=== PATIENT | female | born 1980 | race Caucasian/White ===

== ENCOUNTER 2016-10-22 02:13 | Emergency (ER) | payer MEDICAID ==
[~2016-10-22] VITALS: Ht 160 cm; Wt 70.0 kg
[2016-10-22 08:35] VITALS: BP 115/77
== END 2016-10-22 09:34 | disposition home or self-care (01) ==
LOC: ED 04:03
DX: F10.229 Alcohol dependence with intoxication, unspecified (principal); F20.9 Schizophrenia, unspecified; Z90.49 Acquired absence of other specified parts of digestive tract
CPT/HCPCS: 70450; 82962; 99284

== ENCOUNTER 2016-10-24 15:07 | Emergency (ER) | payer MEDICAID ==
[~2016-10-24] VITALS: Ht 165.1 cm; Wt 67.6 kg
[2016-10-24] MEDS ORDERED: SODIUM CHLORIDE 0.9% 1,000ML IVBOLUS ONE (15:30)
[2016-10-24 21:21] VITALS: BP 106/65
== END 2016-10-24 21:26 | disposition home or self-care (01) ==
LOC: ED 17:07
DX: L55.0 Sunburn of first degree (principal); F19.129 Other psychoactive substance abuse with intoxication, unspecified; E11.9 Type 2 diabetes mellitus without complications; Z90.49 Acquired absence of other specified parts of digestive tract
CPT/HCPCS: 36415; 80047; 84703; 96360; 99284; J7030

== ENCOUNTER 2018-08-18 19:05 | Emergency (ER) | payer MEDICAID, OTHER ==
[~2018-08-18] VITALS: Ht 152.4 cm; Wt 50.0 kg
--- NOTE | 2018-08-18 19:31 | NUR ---
BROUGHT IN BY DEPUTIES FROM [facility] ON LEGAL 1999. PT UNCOOPERATIVE AND NOT WANTING TO TAKE CLOTHES OFF. WITH SECURITY IN ROOM AND ASSISTANCE OF NITHYA PALMER PT'S CLOTHING REMOVED AND PLACED IN GOWN. ADDITIONALLY SECURITY AT SIDE WHILE LAB DRAWING BLOOD. AT THIS POINT PT COOPERATED. THEN EKG DONE BY ESTELA AND PT PERMITED THIS WITHOUT SECURITY AT HAND. PT UNABLE TO ANSWER QUESTIONS, TALKS TO SELF AND YELLS OUT PERIODICALLY, DISHEVELED. SITTER OUTSIDE ROOM.
[2018-08-18 19:32] LABS: BASOPHILS # (AUTO) 0.06 x10^3/uL (0-0.1); BASOPHILS % (AUTO) 1 % (0-1); EOSINOPHILS # (AUTO) 0.35 x10^3/uL (0-0.4); EOSINOPHILS % (AUTO) 4 % (1-7); LYMPHOCYTES # (AUTO) 2.93 x10^3/uL (1-3.4); LYMPHOCYTES % (AUTO) 36 % (22-44); MD NO; MEAN CORPUSCULAR HEMOGLOBIN 30.9 pg (27.0-34.8); MEAN CORPUSCULAR HGB CONC 34.3 g/dL (32.4-35.8); MEAN CORPUSCULAR VOLUME 90.2 fL (80-100); MEAN PLATELET VOLUME 7.8 fL (7.4-10.4); MONOCYTES # (AUTO) 0.78 x10^3/uL (0.2-0.8); MONOCYTES % (AUTO) 10 % (2-9); NEUTROPHILS # (AUTO) 4.11 x10^3/uL (1.8-6.8); NEUTROPHILS % (AUTO) 50 % (42-75); PLATELET COUNT 377 x10^3/uL (130-400); RED BLOOD COUNT 3.27 x10^6/uL (3.82-5.3); RED CELL DISTRIBUTION WIDTH 13.4 % (9.6-15.2)
[2018-08-18 19:45] LABS: ALANINE AMINOTRANSFERASE 23 U/L (12-78); ALBUMIN 3.2 g/dL (3.4-5.0); ANION GAP 5 mmol/L (5-15); CALCIUM 8.2 mg/dL (8.5-10.1); CHLORIDE 111 mmol/L (98-107); CREATININE 0.59 mg/dL (0.55-1.02)
[2018-08-18 19:50] LABS: ALKALINE PHOSPHATASE 68 U/L (45-117); BILIRUBIN,TOTAL 0.1 mg/dL (0.2-1.0); TOTAL PROTEIN 7.1 g/dL (6.4-8.2)
[2018-08-18 19:58] LABS: ACETAMINOPHEN < 2 mcg/mL (10-30); SALICYLATE LEVEL < 1.7 mg/dL (2.8-20.0)
--- NOTE | 2018-08-18 20:51 | NUR ---
TOLD PT WE NEEDED TO GET A URINE SAMPLE AND THAT WE WERE GOING TO THE BATHROOM WITH HER. PT WALKED TO BATHROOM WITHOUT ASSISTANCE AND GAVE SAMPLE IN HAT. BACK TO ROOM. PERIODICALLY STANDS AT DOOR AND THEN BACK TO [facility] IN ROOM. SITTER REMAINS OUTSIDE.
--- NOTE | 2018-08-18 21:06 | NUR ---
REPORT TO HAWK HAWKINS
--- NOTE | 2018-08-18 21:19 | NUR ---
REPORT FROM SHRUTHI DUGAN. PT SITTING UP IN [facility] CARLA NOTED. PT TALKING TO HERSELF. ROOM SECURE. NO PERSONAL BELONGINGS NOTED IN ROOM. SITTER PRESENT. DOA SENT BY RITCHIE. TP AWARE. AWAITING TELEPSYCH CONSULT.
[2018-08-18 21:23] LABS: AMPHETAMINE SCREEN, URINE Negative (Negative); BARBITURATE SCREEN, URINE Negative (Negative); BENZODIAZEPINE SCREEN, URINE Negative (Negative); CANNABINOID SCREEN, URINE Negative (Negative); COCAINE SCREEN, URINE Negative (Negative); METHADONE SCREEN, URINE Negative (Negative); OPIATE SCREEN, URINE Negative (Negative)
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
--- NOTE | 2018-08-19 00:40 | NUR ---
PT PROVIDED SANDWICH, CHIPS, JUICE COMPLIANT WITH SI PROTOCOL. ROOM REMAINS SECURE. SITTER PRESENT.
--- NOTE | 2018-08-19 01:13 | NUR ---
TELEPSYCH INITIATED AT 2104
--- NOTE | 2018-08-19 01:30 | NUR ---
PT SITTING UP IN [place] NOTED. ROOM SECURE. SITTER PRESENT
--- NOTE | 2018-08-19 02:00 | NUR ---
PT YELLING INTERMITTENTLY, "STOP" "GO AWAY". PT SITTING UP IN [place]. HOLDING VS UNTIL PT CALMS
--- NOTE | 2018-08-19 02:09 | NUR ---
REPORT TO SOC . MONITOR IN ROOM.
--- NOTE | 2018-08-19 02:19 | NUR ---
PT MINIMALLY COOPERATIVE WITH SOC INTERVIEW. SOC TO SPEAK WITH ERP
--- NOTE | 2018-08-19 02:41 | NUR ---
REPORT TO SHRUTHI GARCIA
--- NOTE | 2018-08-19 02:45 | NUR ---
PT SITTING ON EDGE OF BED WITH LEGS CURLED UP TALKING TO HERSELF. WILL CONTINUE TO MONITOR. SITTER AT DOOR.
[2018-08-19] MEDS ORDERED: ZIPRASIDONE 20 MG INJ IM ONE ×6 (03:05→16:30)
--- NOTE | 2018-08-19 03:15 | NUR ---
PT BECOMING AGITATED, REPEATEDLY ASKING FOR COFFEE. PT ASKED TO STAY IN HER ROOM. PT REFUSED DUE TO WANTING COFFEE. PT ALSO REQUESTING HER BELONGINGS. PT WALKING OUT INTO GO, REFUSING TO GO BACK INTO HER ROOM. SECURITY CALLED. PT MEDICATED FOR ACUTE AGITATION. SITTER REMAINS AT DOOR.
--- NOTE | 2018-08-19 04:41 | NUR ---
PT REQUESTING FOOD. PT GIVEN CRACKERS. PT PLEASED WITH THIS OFFERING. PT HAS CURLED UP IN BED WITH COVERS OVER HER. RESP EVEN AND NON LABORED. SITTER AT DOOR.
--- NOTE | 2018-08-19 05:21 | NUR ---
PT CONTINUES TO REST CALMLY IN BED. SITTER AT DOOR. WILL CONTINUE TO MONITOR.
--- NOTE | 2018-08-19 06:09 | NUR ---
PT REMAINS RESTING CALMLY IN BED. NO STATED NEEDS. RESP EVEN AND NON LABORED. SITTER AT DOOR.
--- NOTE | 2018-08-19 07:12 | NUR ---
CHECKED ON PATIENT. SITTER AT DOOR. SHE IS SLEEPING SOUNDLY AND WAKES UP BUT NOT COOPERATIVE AND AND NOT ANSWERING QUESTIONS. PATIENT VSS. ORDERED BREAKFAST. WILL NOT ANSWER MY QUESTIONS FOR ASSESMENTS.
[2018-08-19] MEDS ORDERED: LORazepam 1MG TABLET PO ONE (07:30)
[2018-08-19] MEDS ORDERED: LORazepam 1MG TABLET ONE (07:31)
--- NOTE | 2018-08-19 07:38 | NUR ---
SEAMUS WOKE UP AND IS ADAMENT ABOUT GOING HOME, AND LEAVING. SHE IS UNCOOPERATIVE, PACING, AND ESCALATING HER ANGER. GAVE PATIENT ATIVAN TO HELP AND WILL REASSESS.
--- NOTE | 2018-08-19 08:02 | NUR ---
GOT PATIENT BREAKFAST, ATE ALL OF IT. PATIENT RESTLESS, AND PACING.
--- NOTE | 2018-08-19 08:37 | NUR ---
THROUGH PUT RN: PT PLACED ON A LEGAL HOLD, MEDICALLY CLEARED. FAXED MEDICALS, FACE SHEET AND LEGAL HOLD TO [facility]. RECEIVED FAX CONFIRMATION.
--- NOTE | 2018-08-19 09:27 | NUR ---
PATIENT SLEEPING AT THIS TIME. ORDERED LUNCH.
--- NOTE | 2018-08-19 10:26 | NUR ---
PATIENT RESTING QUIETLY AT THIS TIME
--- NOTE | 2018-08-19 10:30 | NUR ---
LUNCH TRAY GIVEN. PATIENT IS CALM AND RESTING AT THIS TIME.
--- NOTE | 2018-08-19 11:42 | NUR ---
PATIENT RESTING QUIETLY AT THIS TIME.
--- NOTE | 2018-08-19 12:39 | NUR ---
patient continues to rest quietly.
--- NOTE | 2018-08-19 14:53 | NUR ---
patient up to bathroom briefly, but then went back to bed. she is calm and cooperative.
--- NOTE | 2018-08-19 15:40 | NUR ---
just got word patient accepted at [facility] and will be going at 17:30. she is calm, ordered her a dinner tray.
--- NOTE | 2018-08-19 16:21 | NUR ---
patient woke up and got manic and angry. she is trying to leave, running out of room, and screaming that she needs her things. got order for and gave geodon. patient is here with security keeping her in room.
--- NOTE | 2018-08-19 17:02 | NUR ---
patient was manic and non cooperative about an hour then after geodon patient became calm and back resting. patient wakes easily but otherwise resting quietly. waiting for [facility].
[2018-08-19 17:20] VITALS: BP 105/78
--- NOTE | 2018-08-19 17:58 | NUR ---
patient woke up and is slamming doors, and upset. trying to calm patietn down.
--- NOTE | 2018-08-19 18:13 | NUR ---
[facility]ing [facility]
--- NOTE | 2018-08-19 18:17 | NUR ---
patient report given to cecelia. celia left for eusebios in custody of cecelia
== END 2018-08-19 18:36 ==
LOC: ED 19:34 → EDIP 08-19 02:26 → UNDOADMIN 08-19 02:26 → ED 08-19 18:36
DX: F23 Brief psychotic disorder (principal); E11.9 Type 2 diabetes mellitus without complications
CPT/HCPCS: 36415; 80053; 80307; 80329; 84703; 85025; 96372; 99285; J3486; G0480

== ENCOUNTER 2018-10-09 10:39 | Inpatient (IN) | payer OTHER ==
[~2018-10-09] VITALS: Ht 160 cm; Wt 59.0 kg
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
--- NOTE | 2018-10-09 11:07 | NUR ---
PT FOUND WANDERING IN HALLWAY MULTIPLE TIMES AND ESCORTED BACK TO ROOM SAFELY. PT PROVIDED WITH WARM BLANKET, DENIES NEED FOR RESTROOM
[2018-10-09] MEDS ORDERED: ZIPRASIDONE 20 MG INJ IM ONE ×2 (12:23→12:30)
--- NOTE | 2018-10-09 12:37 | NUR ---
PT UNCOOPERATIVE WITH NURSING CARES, REMOVING MONITORING EQUIMENT, PT PERSISTENTLY GETTING OUT OF BED AND WANDERING DOWN HALLWAY. PT NOT RESPONSIVE TO REASSURANCE, REDIRECTION, NOR ENVIRONMENTAL CHANGES. SITTER MONITORING FROM HALLWAY, MEDICATED PER MD ORDER, RESTRAINTS IN PLACE. SEE PAPER CHARTING
[2018-10-09 12:51] LABS: BASOPHILS # (AUTO) 0.06 x10^3/uL (0-0.1); BASOPHILS % (AUTO) 1 % (0-1); EOSINOPHILS % (AUTO) 0 % (1-7); LYMPHOCYTES # (AUTO) 1.47 x10^3/uL (1-3.4); LYMPHOCYTES % (AUTO) 12 % (22-44); MD NO; MEAN CORPUSCULAR HEMOGLOBIN 31.7 pg (27.0-34.8); MEAN CORPUSCULAR HGB CONC 33.3 g/dL (32.4-35.8); MEAN CORPUSCULAR VOLUME 95.1 fL (80-100); MEAN PLATELET VOLUME 8.5 fL (7.4-10.4); MONOCYTES # (AUTO) 0.77 x10^3/uL (0.2-0.8); MONOCYTES % (AUTO) 6 % (2-9); NEUTROPHILS # (AUTO) 10.45 x10^3/uL (1.8-6.8); NEUTROPHILS % (AUTO) 82 % (42-75); PLATELET COUNT 226 x10^3/uL (130-400); RED BLOOD COUNT 3.55 x10^6/uL (3.82-5.3); RED CELL DISTRIBUTION WIDTH 18.2 % (9.6-15.2)
[2018-10-09 13:01] LABS: ALBUMIN 3.3 g/dL (3.4-5.0); ANION GAP 9 mmol/L (5-15); CALCIUM 7.8 mg/dL (8.5-10.1); CHLORIDE 110 mmol/L (98-107)
[2018-10-09 13:14] LABS: ALANINE AMINOTRANSFERASE 45 U/L (12-78); ALKALINE PHOSPHATASE 52 U/L (45-117); BILIRUBIN,TOTAL 0.6 mg/dL (0.2-1.0); CREATININE 0.56 mg/dL (0.55-1.02); TOTAL PROTEIN 6.9 g/dL (6.4-8.2)
[2018-10-09 13:21] LABS: SALICYLATE LEVEL < 1.7 mg/dL (2.8-20.0)
[2018-10-09] MEDS ORDERED: POTASSIUM CHLORIDE 40 MEQ in D5%-0.9% NACL 1,000 ML IV SCH (14:00)
--- NOTE | 2018-10-09 14:29 | NUR ---
LUNCH BREAK NOTE: PT BEING OBSERVED BY SITTER. IV STARTED. PT RESTING IN NAD. VSS. WAITING FOR KCL DRIP FROM PHARMACY.
--- NOTE | 2018-10-09 15:52 | NUR ---
DR LIN TO BEDSIDE, ASSESSMENT AND POC DISCUSSION. AWAITING FURTHER ORDERS AT THIS TIME
[2018-10-09] MEDS ORDERED: LORazepam 2 MG/ML, 1ML IVPush ONE (16:00)
[2018-10-09] MEDS ORDERED: LORazepam 2 MG/ML, 1ML ONE (16:23)
[2018-10-09 18:14] LABS: ANION GAP 5 mmol/L (5-15); CALCIUM 7.6 mg/dL (8.5-10.1); CHLORIDE 113 mmol/L (98-107); CREATININE 0.49 mg/dL (0.55-1.02)
--- NOTE | 2018-10-09 19:07 | NUR ---
RECIEVED BEDSIDE REPORT FROM HAKAN HAWKINS.. PT RESTING IN BED WITH EYES CLOSED. RESP EVEN, PT ON VITALS MONITORS. SITTER AT DOOR FOR OBS.
[2018-10-09] MEDS ORDERED: BENZTROPINE 1 MG TABLET PO PRN (19:30)
[2018-10-09] MEDS ORDERED: BISACODYL 10 MG SUPP PR PRN (19:30)
[2018-10-09] MEDS ORDERED: POLYETHYLENE GLYCOL 17 GM PACKET PO PRN (19:30)
[2018-10-09] MEDS ORDERED: ONDANSETRON ODT 4 MG PO PRN (19:30)
[2018-10-09] MEDS ORDERED: ZIPRASIDONE 20MG CAPSULE PO PRN (19:30)
--- NOTE | 2018-10-09 20:31 | NUR ---
PT REMAINS RESTING IN BED WITH EYES CLOSED. SITTER AT DOOR FOR OBS. WILL CONTINUE TO MONITOR.
--- NOTE | 2018-10-09 21:11 | NUR ---
PT RESTING CALMLY IN BED WITH EYES CLOSED. NO STATED NEEDS AT THIS TIME. SITTER AT [facility] FOR FREQUENT OBS.
--- NOTE | 2018-10-09 22:10 | NUR ---
PT RESTING CALMLY IN BED WITH EYES CLOSED. NO STATED NEEDS AT THIS TIME. SITTER AT [facility] FOR FREQUENT OBS.
--- NOTE | 2018-10-09 23:47 | NUR ---
PT RESTING CALMLY IN BED WITH EYES CLOSED. NO STATED NEEDS AT THIS TIME. SITTER AT [facility] FOR FREQUENT OBS.
--- NOTE | 2018-10-10 00:40 | NUR ---
PT AWAKE AND WALKING AROUND HER ROOM. PT HAS REMOVED GOWN AND PUT ON HER STREET CLOTHES. PT HAS PULLED OUT IV INTACT AND REMOVED VITALS MONITORS. AMBULATED TO BATHROOM STEADILY WITH THIS RN AND PROVIDED URINE SAMPLE. PT WALKED BACK TO HER ROOM. PT SAT ON BED FOR A SHORT WHILE, THEN RAN OUT OF ROOM AND EXITED OUT OF RAD DOOR. PT FOUND IN GO BY RAD BY SECURITY AND BROUGHT BACK TO ROOM.
--- NOTE | 2018-10-10 01:05 | NUR ---
PT PUT BACK IN HOSPITAL GOWN. PT CLOTHING REMOVED FROM ROOM, TAGGED, BAGGED AND PLACED IN CLOTHING CLOSET. PT PLACED IN RESTRAINTS.
[2018-10-10 01:18] LABS: CULTURE INDICATED? NO; MICROSCOPIC AUTO
[2018-10-10 01:26] LABS: AMPHETAMINE SCREEN, URINE Negative (Negative); BARBITURATE SCREEN, URINE Negative (Negative); BENZODIAZEPINE SCREEN, URINE Negative (Negative); CANNABINOID SCREEN, URINE Negative (Negative); COCAINE SCREEN, URINE Negative (Negative); METHADONE SCREEN, URINE Negative (Negative); OPIATE SCREEN, URINE Negative (Negative)
--- NOTE | 2018-10-10 01:33 | NUR ---
BREAK RN: PT IN RESTRAINTS UPON RECEIVING REPORT S/T PT CONTINUOUSLY GETTING UP AND TRYING TO LEAVE. PT SHOUTING AT STAFF WHEN ATTEMPTING TO BE ESCORTED BACK TO . THIS HAPPENED MULTIPLE TIMES WITHIN APPROX 30 MINUTES. UNABLE TO DEESCULATE PT VERBALLY. PT RAMBLING ABOUT MOVING TO [place]. PT STATES [place] WHEN ASKED WHERE SHE IS AT. ATTEMPTED TO REOREINT PT. VSS. SITTER IN PLACE FOR OBS.
--- NOTE | 2018-10-10 01:41 | NUR ---
BREAK RN: PT GIVEN PO FLUIDS PER REQUEST. OFFERED BEDPAN--PT REFUSING AT THIS TIME.
--- NOTE | 2018-10-10 01:55 | NUR ---
CALLED [facility] FAXED REFERRAL TO [facility] PT IS SELF PAY
--- NOTE | 2018-10-10 02:01 | NUR ---
Called ED. Unable to admit to 3E due to self-pay status at this time.
[2018-10-10] MEDS ORDERED: ZIPRASIDONE 20 MG INJ IM ONE ×2 (02:35→03:00)
--- NOTE | 2018-10-10 02:52 | NUR ---
PT STEADILY SCREAMING TO USE THE BATHROOM. PT OFFERED BEDPAN. PT ABLE TO VOID WITH BEDPAN. PT MEDICATED PER EMAR FOR AGITATION. PT GIVEN PILLOW. WILL CONTINUE TO MONITOR.
--- NOTE | 2018-10-10 03:34 | NUR ---
PT CALMING DOWN. IS STARTING TO DOZING OFF AND ON. WILL CONTINUE TO MONITOR. SITTER AT DOOR FOR FREQUENT OBS.
[2018-10-10 04:00] LABS: BASOPHILS # (AUTO) 0.03 x10^3/uL (0-0.1); BASOPHILS % (AUTO) 0 % (0-1); EOSINOPHILS # (AUTO) 0.06 x10^3/uL (0-0.4); EOSINOPHILS % (AUTO) 1 % (1-7); LYMPHOCYTES # (AUTO) 1.74 x10^3/uL (1-3.4); LYMPHOCYTES % (AUTO) 17 % (22-44); MD NO; MEAN CORPUSCULAR HEMOGLOBIN 31.6 pg (27.0-34.8); MEAN CORPUSCULAR HGB CONC 33.4 g/dL (32.4-35.8); MEAN CORPUSCULAR VOLUME 94.7 fL (80-100); MEAN PLATELET VOLUME 8.5 fL (7.4-10.4); MONOCYTES # (AUTO) 0.59 x10^3/uL (0.2-0.8); MONOCYTES % (AUTO) 6 % (2-9); NEUTROPHILS # (AUTO) 7.56 x10^3/uL (1.8-6.8); NEUTROPHILS % (AUTO) 76 % (42-75); PLATELET COUNT 204 x10^3/uL (130-400); RED BLOOD COUNT 3.71 x10^6/uL (3.82-5.3)
[2018-10-10 04:04] LABS: ANION GAP 4 mmol/L (5-15); CHLORIDE 111 mmol/L (98-107); CREATININE 0.54 mg/dL (0.55-1.02)
--- NOTE | 2018-10-10 04:16 | NUR ---
RESTRAINTS REMOVED FROM PT. PT RESTING CALMLY IN BED. SITTER AT DOOR. BELEM CONTINUE TO MONITOR. PT PLACED ON O2 SAT MONITOR.
--- NOTE | 2018-10-10 05:16 | NUR ---
PT RESTING CALMLY IN BED WITH EYES CLOSED. SITTER AT DOOR FOR OBS.
--- NOTE | 2018-10-10 06:42 | NUR ---
PT UP TO THE BATHROOM STEADILY. PT BEHAVIOR APPROPRIATE AT THIS TIME. PT GIVEN DECAF COFFEE. WILL ORDER BREAKFAST.
--- NOTE | 2018-10-10 06:52 | NUR ---
REPORT TO MELISSA HAWKINS.
[2018-10-10] MEDS ORDERED: BENZTROPINE 1 MG TABLET ONE (06:57)
[2018-10-10] MEDS ORDERED: ZIPRASIDONE 20MG CAPSULE ONE (06:57)
--- NOTE | 2018-10-10 07:00 | NUR ---
REPORT RECIEVED FROM SHRUTHI ALMENDAREZ
--- NOTE | 2018-10-10 07:47 | NUR ---
PT VSS STABLE, SEE VS SPEADSHEET. PT SPEAKING IN DISORGANIZED PATTERNS. CLAIMS SHE WAS DIAGNOSIED WITH HIV BUT HAS NOT BEEN DIANOSED WITH ANY MENTAL ILLNESS. PT CALM AND COOPERATIVE. DENIES ANY SI OR HI. PT MEDICATED PER EMAR BY PRECEPTOR RN. BREAKFAST TRAY PROVED. SITTER OUTSIDE OF ROOM MONITORING PT.
--- NOTE | 2018-10-10 08:24 | NUR ---
2N TO RE-EVAL PT AT 1600 PER NOELLE.
--- NOTE | 2018-10-10 08:26 | NUR ---
Pt was removed from restraints at approx. 0400. Pt will be re-evaluated by 2N at 1600 for appropriateness.
--- NOTE | 2018-10-10 08:52 | NUR ---
TASK RN: PT PROVIDED W/ CUP OF COFFEE. PT RESTING ON GURJAMIE. THEO. SITTER REMAINS AT BEDSIDE. ROOM REMAINS SECURE.
[2018-10-10] MEDS: SENNA/DOCUSATE TABLET PO SCH (09:00)
--- NOTE | 2018-10-10 09:58 | NUR ---
PT PROVIDED WITH TO GUO. PT CALM AND COOPERATIVE. NO ACUTE DISTRESS NOTED.
--- NOTE | 2018-10-10 11:00 | NUR ---
PT CALM AND COOPERATIVE, PACING IN ROOM. TV PROVIDED. 1 CUP DECAF PROVIDED.
--- NOTE | 2018-10-10 11:40 | NUR ---
PT CALM AND COOPERATIVE, PACING IN ROOM. TV PROVIDED.
--- NOTE | 2018-10-10 11:47 | NUR ---
LUNCH TRAY ORDERED
--- NOTE | 2018-10-10 12:40 | NUR ---
PT PROVIDED WITH SUICIDE/SECURITY LUNCH TRAY
--- NOTE | 2018-10-10 13:40 | NUR ---
PT CALM AND COOPERATIVE, PACING IN ROOM. COFFEE PROVIDED.
--- NOTE | 2018-10-10 14:45 | NUR ---
PT CALM AND COOPERATIVE, PACING IN ROOM.
--- NOTE | 2018-10-10 15:45 | NUR ---
PT CALM AND COOPERATIVE, PACING IN ROOM.
--- NOTE | 2018-10-10 16:45 | NUR ---
PT CALM AND COOPERATIVE, PACING IN ROOM. coffee provided
--- NOTE | 2018-10-10 17:38 | NUR ---
PT CALM AND COOPERATIVE, PACING IN ROOM. meal tray ordered.
--- NOTE | 2018-10-10 18:10 | NUR ---
PRECEPTOR RN: SPOKE W/ HOUSE SUP RITCHIE, 2N SUP TO RE-EVALUATE PT WHEN 2N STAFFING ALLOWS
--- NOTE | 2018-10-10 18:11 | NUR ---
PT CALM AND COOPERATIVE, PACING IN ROOM. meal tray provided
--- NOTE | 2018-10-10 18:23 | NUR ---
report given to stephen benson on 2N
[2018-10-10 18:52] VITALS: BP 105/71
[2018-10-10] MEDS: HALOPERIDOL 5 MG TABLET PO PRN (19:53)
[2018-10-10] MEDS: LORazepam 1MG TABLET PO PRN (19:53)
[2018-10-10] MEDS: ZIPRASIDONE 40MG CAPSULE PO SCH (19:53)
[2018-10-10] MEDS: ACETAMINOPHEN 325 MG TABLET PO PRN (20:04)
[2018-10-10 22:02] VITALS: BP 105/71
[2018-10-11] MEDS: ACETAMINOPHEN 325 MG TABLET PO PRN (06:21)
[2018-10-11] MEDS: LORazepam 1MG TABLET PO PRN (07:30)
[2018-10-11] MEDS: ZIPRASIDONE 40MG CAPSULE PO SCH ×2 (07:30→19:33)
[2018-10-11] MEDS: SENNA/DOCUSATE TABLET PO SCH (07:30)
[2018-10-11 07:45] VITALS: BP 99/67
[2018-10-11] MEDS: HALOPERIDOL 5 MG TABLET PO PRN (09:03)
[2018-10-11] MEDS: HALOPERIDOL 5 MG/ML IM PRN ×2 (15:03→21:30)
[2018-10-11] MEDS: DIPHENHYDRAMINE 50 MG/ML, 1ML IM PRN ×2 (15:03→21:30)
[2018-10-11] MEDS: LORazepam 2 MG/ML, 1ML IM PRN ×2 (15:03→21:30)
[2018-10-11 19:41] VITALS: BP 85/57
[2018-10-11 19:57] VITALS: BP 93/49
[2018-10-12] MEDS: HALOPERIDOL 5 MG/ML IM PRN (00:33)
[2018-10-12] MEDS: DIPHENHYDRAMINE 50 MG/ML, 1ML IM PRN (00:35)
[2018-10-12] MEDS: LORazepam 2 MG/ML, 1ML IM PRN (00:35)
[2018-10-12] MEDS: ACETAMINOPHEN 325 MG TABLET PO PRN ×2 (01:42→13:10)
[2018-10-12 07:32] VITALS: BP 94/68
[2018-10-12] MEDS: HALOPERIDOL 5 MG TABLET PO PRN (07:49)
[2018-10-12] MEDS: DIPHENHYDRAMINE 50 MG CAPSULE PO PRN (07:49)
[2018-10-12] MEDS: SENNA/DOCUSATE TABLET PO SCH (07:49)
[2018-10-12] MEDS: ZIPRASIDONE 40MG CAPSULE PO SCH ×2 (07:49→20:10)
[2018-10-12] MEDS: LORazepam 1MG TABLET PO PRN (07:50)
[2018-10-12] MEDS ORDERED: HALO5VIA2 IM (15:34)
[2018-10-12] MEDS ORDERED: HALO5TAB5 PO (15:34)
[2018-10-12] MEDS ORDERED: ONDA4TAB13 PO (15:34)
[2018-10-12] MEDS ORDERED: POLY17PO5 PO (15:34)
[2018-10-12] MEDS ORDERED: LORA-446 PO (15:34)
[2018-10-12] MEDS ORDERED: ZIPR40CA2 PO (15:34)
[2018-10-12] MEDS ORDERED: ACET325T14 PO (15:34)
[2018-10-12] MEDS ORDERED: BENZ1TAB61 PO (15:34)
[2018-10-12] MEDS ORDERED: LORA2VIA6 IM (15:34)
[2018-10-12 19:49] VITALS: BP 100/68
[2018-10-12] MEDS ORDERED: TRAZODONE 50MG TABLET PO SCH (21:00)
[2018-10-13] MEDS: DIPHENHYDRAMINE 50 MG CAPSULE PO PRN (03:54)
[2018-10-13] MEDS: ACETAMINOPHEN 325 MG TABLET PO PRN (03:54)
[2018-10-13] MEDS: LORazepam 1MG TABLET PO PRN (03:54)
[2018-10-13 08:35] VITALS: BP 106/71
[2018-10-13] MEDS: SENNA/DOCUSATE TABLET PO SCH (08:50)
[2018-10-13] MEDS: ZIPRASIDONE 40MG CAPSULE PO SCH (08:50)
== END 2018-10-13 13:30 | DRG 885 ==
LOC: ED 13:47 → EDIP 19:12 → 2N 10-10 18:43
PROVIDERS: ADMIT Internal Medicine; ATTEND Internal Medicine
DX: F20.0 Paranoid schizophrenia (principal); D64.9 Anemia, unspecified; D72.829 Elevated white blood cell count, unspecified; E11.9 Type 2 diabetes mellitus without complications; E87.6 Hypokalemia; F60.0 Paranoid personality disorder; F31.9 Bipolar disorder, unspecified; Z59.0 Homelessness; Z91.83 Wandering in diseases classified elsewhere; Z90.49 Acquired absence of other specified parts of digestive tract; Z79.899 Other long term (current) drug therapy
CPT/HCPCS: 36415; 80048; 80053; 80307; 81001; 82607; 83735; 84443; 84703; 85025; 96365; 96366; 96372; 96375; G0378; J3480; J3486; J7042; J1200; J1630; J2060

== ENCOUNTER 2019-06-11 17:31 | Emergency (ER) | payer SELFPAY ==
[~2019-06-11] VITALS: Ht 157.5 cm; Wt 56.8 kg
[~2019-06-11 17:31] MED LIST: ACET325T14 PO; BENZ1TAB61 PO; HALO5TAB5 PO; HALO5VIA2 IM; LORA-446 PO; LORA2VIA6 IM; ONDA4TAB13 PO; POLY17PO5 PO; ZIPR40CA2 PO
--- NOTE | 2019-06-11 17:51 | NUR ---
BIB EMS FOR COMPLAINTS OF BEING AND RECENTLY GIVING . "I HAD SIX BABIES ONE DAY AGO. I REALLY WANT TO GET MY UTERUS REMOVED." PT STATES THAT 2 BABIES REMAIN IN UTERO. PT C/O ABD PAIN NAUSEA AND VOMITING X 1 WEEK. PT APPEARS DISHEVELED AND APPEARS TO SPEAK IMAGINARY PERSONS WITH MOUTH GESTURES. THIS RN HAS TAKEN CARE OF THIS PATIENT IN THE PAST AND THIS IS THE PATIENT'S NORMAL ORIENTATION, I RECALL. PT IN NO DISTRESS, AND IS ORIENTED TO PERSON AND PLACE. PT DOES SPEAK TO PEOPLE WHO ARE NOT THERE, GETTING AGITATED AT THEM AT TIMES.
--- NOTE | 2019-06-11 17:53 | NUR ---
YU MERCADO AT BEDSIDE.
[2019-06-11] MEDS ORDERED: ZIPRASIDONE 40MG CAPSULE PO ONE (18:30)
[2019-06-11 18:32] LABS: ALANINE AMINOTRANSFERASE 37 U/L (12-78); ALBUMIN 3.1 g/dL (3.4-5.0); ANION GAP 8 mmol/L (5-15); CALCIUM 8.6 mg/dL (8.5-10.1); CHLORIDE 108 mmol/L (98-107); CREATININE 0.57 mg/dL (0.55-1.02)
[2019-06-11 18:37] LABS: ALKALINE PHOSPHATASE 51 U/L (45-117); BILIRUBIN,TOTAL 0.8 mg/dL (0.2-1.0)
[2019-06-11 18:38] LABS: BASOPHILS # (AUTO) 0.03 x10^3/uL (0-0.1); BASOPHILS % (AUTO) 0 % (0-1); EOSINOPHILS # (AUTO) 0.16 x10^3/uL (0-0.4); EOSINOPHILS % (AUTO) 2 % (1-7); LYMPHOCYTES # (AUTO) 1.86 x10^3/uL (1-3.4); LYMPHOCYTES % (AUTO) 18 % (22-44); MD NO; MEAN CORPUSCULAR HEMOGLOBIN 32.7 pg (27.0-34.8); MEAN CORPUSCULAR HGB CONC 33.6 g/dL (32.4-35.8); MEAN CORPUSCULAR VOLUME 97.1 fL (80-100); MEAN PLATELET VOLUME 8.1 fL (7.4-10.4); MONOCYTES # (AUTO) 0.75 x10^3/uL (0.2-0.8); MONOCYTES % (AUTO) 7 % (2-9); NEUTROPHILS # (AUTO) 7.38 x10^3/uL (1.8-6.8); NEUTROPHILS % (AUTO) 73 % (42-75); PLATELET COUNT 279 x10^3/uL (130-400); RED BLOOD COUNT 3.81 x10^6/uL (3.82-5.3); RED CELL DISTRIBUTION WIDTH 13.9 % (9.6-15.2)
--- NOTE | 2019-06-11 19:05 | NUR ---
PT RESTING ON GURNEY WITH BLANKET COVERING HEAD, PT COOPERATIVE WITH STAFF, PT REPORTS "IM SO TIRED". MONITORING IN PLACE, CALL LIGHT WITHIN REACH.
[2019-06-11] MEDS ORDERED: ZIPRASIDONE 20MG CAPSULE ONE (19:21)
[2019-06-11 19:25] VITALS: BP 114/66
--- NOTE | 2019-06-11 19:25 | NUR ---
PT CONSUMED 50% OF MEAL PROVIDED, WATER AND SNACKS AVALIABLE.
== END 2019-06-11 21:51 | disposition home or self-care (01) ==
LOC: ED 21:46
DX: F15.150 Other stimulant abuse with stimulant-induced psychotic disorder with delusions (principal); F41.1 Generalized anxiety disorder
CPT/HCPCS: 36415; 80053; 80307; 83690; 84703; 85025; 99283

== ENCOUNTER 2019-06-12 13:31 | Emergency (ER) | payer SELFPAY ==
[~2019-06-12] VITALS: Ht 165.1 cm; Wt 65.0 kg
--- NOTE | 2019-06-12 13:37 | NUR ---
PATIENT BROUGHT IN BY [facility] AFTER CALLED BY [employer] DUE TO ETOH INTOXICATION. PATIENT ARRIVES ODOR OF ETOH, ORIENTED X2, LETHARGIC, VITAL SIGNS STABLE.
[2019-06-12 13:38] VITALS: BP 110/60
--- NOTE | 2019-06-12 14:23 | NUR ---
PT RESTING IN BED. REFUSING BREATHLYZER
== END 2019-06-12 15:41 | disposition left against medical advice (07) ==
LOC: ED 15:35
DX: F10.220 Alcohol dependence with intoxication, uncomplicated (principal); E11.9 Type 2 diabetes mellitus without complications; Z90.49 Acquired absence of other specified parts of digestive tract; Y90.0 Blood alcohol level of less than 20 mg/100 ml
CPT/HCPCS: 99283

== ENCOUNTER 2019-07-22 18:56 | Emergency (ER) | payer SELFPAY ==
[~2019-07-22] VITALS: Ht 165.1 cm; Wt 56.8 kg
--- NOTE | 2019-07-22 19:44 | NUR ---
PT RESTING WITH EYES CLOSED. MONITOR IN PLACE.
[2019-07-22 22:11] VITALS: BP 100/51
--- NOTE | 2019-07-22 22:22 | NUR ---
PT AROUSED, ATTEMPTED AMBULATION, PT UNSTEADY, WATER AND SNACK PROVIDED. WILL REASSESS IN [address].
--- NOTE | 2019-07-22 23:27 | NUR ---
PT AMBULATED TO BR WITH A STEADY GAIT. DC'D HOME VIA TAXI.
== END 2019-07-22 23:29 | disposition home or self-care (01) ==
LOC: ED 22:28
DX: F10.220 Alcohol dependence with intoxication, uncomplicated (principal); E11.9 Type 2 diabetes mellitus without complications; Z90.49 Acquired absence of other specified parts of digestive tract; Y90.0 Blood alcohol level of less than 20 mg/100 ml
CPT/HCPCS: 99283

== ENCOUNTER 2019-07-25 15:58 | Emergency (ER) | payer SELFPAY ==
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
== END 2019-07-25 16:29 | disposition home or self-care (01) ==
LOC: ED 16:10
DX: F41.1 Generalized anxiety disorder (principal); F10.220 Alcohol dependence with intoxication, uncomplicated; F17.200 Nicotine dependence, unspecified, uncomplicated; E11.9 Type 2 diabetes mellitus without complications; Z72.9 Problem related to lifestyle, unspecified; Z90.49 Acquired absence of other specified parts of digestive tract; Y90.9 Presence of alcohol in blood, level not specified
CPT/HCPCS: 99283

== ENCOUNTER 2019-12-16 18:32 | Emergency (ER) | payer MEDICAID ==
[~2019-12-16] VITALS: Ht 165.1 cm; Wt 56.8 kg
[2019-12-16 18:40] VITALS: BP 108/62
--- NOTE | 2019-12-16 18:44 | NUR ---
TASK RN: JOSEPH MATTHEWS AFTER BEING FOUND ON [place] AND [address] [place] [address] WITH PANTS AND NO SHIRT/BRA ON. PT NOT ANSWERING QUESTIONS ONLY STATES HER NAME IS ANNIE. PT DOES ADMIT TO USING DRUGS BUT UNKNOWN WHICH ONES. PT ALSO NOTED TO HAVE PEELING SKIN TO UPPER BACK AND REDNESS FROM [place]. PT MOUTH AND NOSE ALSO WITH PEELING SKIN. VS [employer] INTERN HR 92, BP 116/70, 96% RA, RR 20, BS 107. PT PLACED IN SECURE ROOM. PERSONAL BELONGINGS BAG (1 OF 1) PLACED IN SECURE LOCKER. SITTER AT BEDSIDE. SHIRA HENDRIX RN NOTIFIED.
--- NOTE | 2019-12-16 19:41 | NUR ---
pt on her period. pt cleaned of blood and provided clean underwear and pad. pt not answering questions. unable to obtain health history. pt feet cleaned also.
--- NOTE | 2019-12-16 19:52 | NUR ---
pt not complying with requests to provide a urine sample. alyse tate notified and he says not to straight cath at this time but to wait until labs are resulted.
[2019-12-16 20:11] LABS: BASOPHILS # (AUTO) 0.08 x10^3/uL (0-0.1); BASOPHILS % (AUTO) 1 % (0-1); EOSINOPHILS # (AUTO) 0.35 x10^3/uL (0-0.4); EOSINOPHILS % (AUTO) 3 % (1-7); LYMPHOCYTES # (AUTO) 2.74 x10^3/uL (1-3.4); LYMPHOCYTES % (AUTO) 24 % (22-44); MD NO; MEAN CORPUSCULAR HEMOGLOBIN 30.8 pg (27.0-34.8); MEAN CORPUSCULAR HGB CONC 33.2 g/dL (32.4-35.8); MEAN CORPUSCULAR VOLUME 92.6 fL (80-100); MEAN PLATELET VOLUME 7.4 fL (7.4-10.4); MONOCYTES # (AUTO) 0.58 x10^3/uL (0.2-0.8); MONOCYTES % (AUTO) 5 % (2-9); NEUTROPHILS # (AUTO) 7.76 x10^3/uL (1.8-6.8); NEUTROPHILS % (AUTO) 67 % (42-75); PLATELET COUNT 403 x10^3/uL (130-400); RED BLOOD COUNT 3.66 x10^6/uL (3.82-5.3); RED CELL DISTRIBUTION WIDTH 15.3 % (9.6-15.2)
[2019-12-16 20:25] LABS: ALANINE AMINOTRANSFERASE 26 U/L (12-78); ANION GAP 7 mmol/L (5-15); CALCIUM 7.9 mg/dL (8.5-10.1); CHLORIDE 107 mmol/L (98-107); CREATININE 0.59 mg/dL (0.55-1.02); SALICYLATE LEVEL 2.3 mg/dL (2.8-20.0)
[2019-12-16 20:30] LABS: ALKALINE PHOSPHATASE 72 U/L (45-117); BILIRUBIN,TOTAL 0.4 mg/dL (0.2-1.0); TOTAL PROTEIN 7.1 g/dL (6.4-8.2)
--- NOTE | 2019-12-16 22:17 | NUR ---
DR MONTES STATES NOT TO STRAIGHT CATH FOR URINE. IF SHE GETS UP TO PEE, OBTAIN SAMPLE.
--- NOTE | 2019-12-16 22:43 | NUR ---
PT RESTING ON GURNEY. RESPIRATIONS EVEN AND UNLABORED.
--- NOTE | 2019-12-17 03:21 | NUR ---
PT RESTING ON GURNEY. RESPIRATIONS EVEN AND UNLABORED. SITTER WATCHING PT FROM DOORWAY
--- NOTE | 2019-12-17 04:03 | NUR ---
PT STILL REFUSING TO PROVIDE URINE SAMPLE.
--- NOTE | 2019-12-17 06:37 | NUR ---
PT RESTING ON GURNEY. RESPIRATIONS EVEN AND UNLABORED. SITTER WATCHING PT FROM DOORWAY
--- NOTE | 2019-12-17 07:04 | NUR ---
report to stephen gross
--- NOTE | 2019-12-17 08:10 | NUR ---
PT RESTING ON GURNEY AT THIS TIME, VISIBLE CHEST RISE AND FALL NOTED, SI PRECAUTIONS OBSERVED, PT REFUSED BREAKFAST TRAY THIS AM
--- NOTE | 2019-12-17 09:43 | NUR ---
PT NOW ACCEPTING MEAL TRAY, REFUSING VS ASSESSMENT, NOT COOPERATIVE WITH CARE/ASSESSENT. SI PRECAUTIONS OBSERVED.
--- NOTE | 2019-12-17 10:43 | NUR ---
UDS COLLECTED AND SENT TO LAB, LAB STATES THEY CAN NOT LOCATE SAMPLE. WILL ATTEMPT AT LATER TIME TO RECOLLECT
--- NOTE | 2019-12-17 11:03 | NUR ---
REPORT FROM RADHA HAWKINS. ASSUMING CARE AT THIS TIME. PT RESTING COMFORTABLY, RESP EVEN AND UNLABORED. PT IN DIRECT SIGHT OF SITTER FOR SAFETY.
[2019-12-17 11:08] LABS: AMPHETAMINE SCREEN, URINE Positive (Negative); CANNABINOID SCREEN, URINE Positive (Negative); COCAINE SCREEN, URINE Negative (Negative); METHADONE SCREEN, URINE Negative (Negative); OPIATE SCREEN, URINE Negative (Negative)
[2019-12-17 11:15] LABS: BARBITURATE SCREEN, URINE Negative (Negative); BENZODIAZEPINE SCREEN, URINE Negative (Negative)
[2019-12-17] MEDS ORDERED: ZIPRASIDONE 20MG CAPSULE ONE (11:58)
[2019-12-17] MEDS ORDERED: ZIPRASIDONE 40MG CAPSULE PO SCH (12:00)
--- NOTE | 2019-12-17 12:09 | NUR ---
[facility] ADMIN PER JUN. DIET TRAY DELIVERED. PT SITTING ON BED EATING LUNCH. PT IN DIRECT SIGHT OF SITTER.
[2019-12-17] MEDS ORDERED: ACETAMINOPHEN 500 MG TABLET ONE (12:23)
[2019-12-17] MEDS ORDERED: ACETAMINOPHEN 500 MG TABLET PO ONE (12:30)
--- NOTE | 2019-12-17 13:52 | NUR ---
PT RESTING COMFORTABLY ON GURNEY. RESP EVEN AND UNLABORED. PT IN DIRECT SIGHT OF SITTER.
--- NOTE | 2019-12-17 14:20 | NUR ---
REPORT GIVEN TO VU HAWKINS AT [facility].
== END 2019-12-17 14:57 ==
LOC: EDBD 18:32 → MERGE 18:32 → ED 12-17 12:25
DX: F15.151 Other stimulant abuse with stimulant-induced psychotic disorder with hallucinations (principal); F22 Delusional disorders; Z72.9 Problem related to lifestyle, unspecified
CPT/HCPCS: 36415; 80053; 80307; 84443; 84703; 85025; 99285

== ENCOUNTER 2019-12-17 13:28 | Inpatient (IN) | payer MEDICAID ==
[~2019-12-17] VITALS: Ht 154.9 cm; Wt 51.8 kg
[2019-12-17] MEDS ORDERED: POLYETHYLENE GLYCOL 17 GM PACKET PO PRN (14:30)
[2019-12-17 15:00] VITALS: BP 119/73
[2019-12-17] MEDS ORDERED: PLEASE ENTER HEIGHT AND WEIGHT MC SCH (15:00)
[2019-12-17] MEDS ORDERED: OLANZAPINE 10 MG INJ IM ONE (15:30)
[2019-12-17] MEDS ORDERED: DIVALPROEX 500 MG TABLET.DR PO ONE (15:30)
[2019-12-17] MEDS: LORazepam 1MG TABLET PO PRN (15:48)
[2019-12-17] MEDS: DIVALPROEX 500 MG TABLET.DR PO SCH (20:17)
[2019-12-18 07:45] LABS: CHOL/HDL RATIO 3.5
[2019-12-18] MEDS: DIVALPROEX 500 MG TABLET.DR PO SCH ×2 (08:43→20:39)
[2019-12-18] MEDS: SENNA/DOCUSATE TABLET PO SCH (08:43)
[2019-12-18] MEDS ORDERED: OLANZAPINE 5 MG TABLET ONE (11:21)
[2019-12-18] MEDS: ACETAMINOPHEN 325 MG TABLET PO PRN ×2 (11:25→18:42)
[2019-12-18] MEDS: OLANZAPINE 5 MG TABLET PO SCH ×2 (11:26→20:39)
[2019-12-18] MEDS: LORazepam 1MG TABLET PO PRN (17:08)
[2019-12-18 17:26] LABS: MICROSCOPIC INDICATED
[2019-12-19 07:42] VITALS: BP 104/51
[2019-12-19] MEDS: OLANZAPINE 5 MG TABLET PO SCH ×2 (08:36→20:09)
[2019-12-19] MEDS: DIVALPROEX 500 MG TABLET.DR PO SCH ×2 (08:36→20:09)
[2019-12-19] MEDS: SENNA/DOCUSATE TABLET PO SCH (08:37)
[2019-12-19] MEDS: LORazepam 1MG TABLET PO PRN ×2 (09:28→17:35)
[2019-12-19 19:18] VITALS: BP 109/72
[2019-12-20 07:24] VITALS: BP 118/81
[2019-12-20] MEDS: SENNA/DOCUSATE TABLET PO SCH (08:25)
[2019-12-20] MEDS: DIVALPROEX 500 MG TABLET.DR PO SCH ×2 (08:25→20:25)
[2019-12-20] MEDS: OLANZAPINE 5 MG TABLET PO SCH ×2 (08:26→20:25)
[2019-12-20] MEDS: LORazepam 1MG TABLET PO PRN ×2 (15:15→20:31)
[2019-12-20 19:10] VITALS: BP 94/62
[2019-12-20] MEDS ORDERED: OLANZAPINE 10 MG INJ IM ONE ×2 (21:53→22:00)
[2019-12-21 07:33] VITALS: BP 91/58
[2019-12-21] MEDS: SENNA/DOCUSATE TABLET PO SCH (08:26)
[2019-12-21] MEDS: OLANZAPINE 5 MG TABLET PO SCH ×2 (08:26→20:45)
[2019-12-21] MEDS: DIVALPROEX 500 MG TABLET.DR PO SCH ×2 (08:26→20:45)
[2019-12-21] MEDS: LORazepam 1MG TABLET PO PRN ×2 (15:59→20:45)
[2019-12-21 19:34] VITALS: BP 89/62
[2019-12-21] MEDS: ACETAMINOPHEN 325 MG TABLET PO PRN (20:45)
[2019-12-21 20:46] VITALS: BP 104/56
[2019-12-22 07:00] VITALS: BP 83/64
[2019-12-22] MEDS: OLANZAPINE 5 MG TABLET PO SCH ×2 (08:55→20:27)
[2019-12-22] MEDS: DIVALPROEX 500 MG TABLET.DR PO SCH ×2 (08:55→20:27)
[2019-12-22] MEDS: SENNA/DOCUSATE TABLET PO SCH (08:56)
[2019-12-22] MEDS: LORazepam 1MG TABLET PO PRN ×2 (11:13→23:54)
[2019-12-22] MEDS ORDERED: DIVA-61 PO (15:00)
[2019-12-22] MEDS ORDERED: OLAN5TAB9 PO (15:00)
[2019-12-22 19:48] VITALS: BP 96/58
[2019-12-23 07:00] VITALS: BP 111/62
[2019-12-23] MEDS: DIVALPROEX 500 MG TABLET.DR PO SCH (08:23)
[2019-12-23] MEDS: OLANZAPINE 5 MG TABLET PO SCH (08:23)
[2019-12-23] MEDS: SENNA/DOCUSATE TABLET PO SCH (08:25)
== END 2019-12-23 08:53 | disposition home or self-care (01) | DRG 885 ==
LOC: 3E 14:19
PROVIDERS: ADMIT Psychiatry & Neurology Psychosomatic Medicine; ATTEND Psychiatry & Neurology Psychosomatic Medicine
DX: F20.0 Paranoid schizophrenia (principal); F15.20 Other stimulant dependence, uncomplicated; F31.9 Bipolar disorder, unspecified; F12.20 Cannabis dependence, uncomplicated; Z91.19 Patient's noncompliance with other medical treatment and regimen; Z90.49 Acquired absence of other specified parts of digestive tract; F19.10 Other psychoactive substance abuse, uncomplicated
CPT/HCPCS: 36415; 80061; 81001; 84439; 87086; 93005